=== PATIENT | female | born 1975 | race Caucasian/White ===

== ENCOUNTER 2018-02-21 13:36 | Outpatient (REF) | payer MEDICAID, SELFPAY ==
--- NOTE | 2018-02-21 09:15 | PAPFT_PTH ---
PATIENT: Katelyn Echevarria LOC: [facility] U#:[id number] AGE/SX: 42/F ROOM: RE02/21/[address]: Chang Garcia : 1975 BED: DIS: 02/21/2018 SPEC #: [id number] RECD: 02/22/18 12:47 STATUS: BRAYAN REBenja #: [id number] LEONARDO: 02/21/18 09:[address]: Chang Garcia DEPT: [facility] Cytology RECD BY: Ayesha Farfan Tissues: 1 - CX/ENDOCX FOR PAP SMEARS Procedures: PAP THIN PREP/[facility] Screening HPV DNA PROBE Comments: [id number]
== END 2018-02-21 13:37 ==
LOC: NCHCN 13:36
PROVIDERS: PCP Family Medicine; Visit Provider Family Medicine
DX: Z12.4 Encounter for screening for malignant neoplasm of cervix (principal); Z11.51 Encounter for screening for human papillomavirus (HPV)
CPT/HCPCS: 88142; 87624

== ENCOUNTER 2020-01-22 12:57 | Outpatient (REF) | payer MEDICAID, SELFPAY ==
[2020-01-22 22:02] LABS: Clarity Sl Cloudy (Clear)
[2020-01-22 22:13] LABS: Bilirubin Color Interference (Negative); Blood Color Interference (Negative); Glucose Color Interference mg/dL (Negative); Ketones Color Interference mg/dL (Negative); Leukocyte Esterase Color Interference (Negative); Nitrite Color Interference (Negative); Urobilinogen Color Interference EU/dL (Up TO 0.2)
[2020-01-22 22:15] LABS: Epithelial Cells Rare HPF (Negative); RBC Negative HPF (0-2)
[2020-01-22 22:16] LABS: Bacteria Rare HPF (Negative); C & S Indicated? Yes; Casts Negative LPF (Negative); Crystals Negative HPF (Negative); Mucus Negative (Negative); Other Cells Negative (Negative)
== END 2020-01-22 13:17 ==
LOC: NCHCN 12:57
PROVIDERS: PCP Family Medicine; Visit Provider Nurse Practitioner Family
DX: R30.0 Dysuria (principal)
CPT/HCPCS: 87077; 81003; 81015; 87086; 87186

== ENCOUNTER 2022-02-23 09:29 | Outpatient (REF) | payer MEDICAID, SELFPAY ==
[2022-02-23 17:35] LABS: ALT 28 U/L (14-59); AST 23 U/L (15-37); Albumin 3.7 g/dL (3.4-5.0); Alkaline Phosphatase 64 U/L (46-116); Anion Gap 7.2 mmol/L (3-11); BUN 11 mg/dL (7-18); Bilirubin, Total 0.5 mg/dL (0.2-1.0); CO2 27.8 mmol/L (21.0-32.0); Calcium 8.6 mg/dL (8.5-10.1); Calculated LDL 125 mg/dL (<100); Chloride 103 mmol/L (98-107); Cholesterol 222 mg/dL (<200); Estimated GFR 59.69 (mL/min/1.73m2); Glucose 94 mg/dL (74-106); HDL Cholesterol 60 mg/dL (40-60); Potassium 4.2 mmol/L (3.5-5.1); Sodium 138 mmol/L (136-145); Total Protein 6.9 g/dL (6.4-8.2); Triglyceride 189 mg/dL (<150)
== END 2022-02-23 09:30 | disposition home or self-care (01) ==
LOC: NCHCN 09:29
PROVIDERS: PCP Family Medicine; Visit Provider Family Medicine
DX: R73.01 Impaired fasting glucose (principal); E78.5 Hyperlipidemia, unspecified
CPT/HCPCS: 80053; 80061

== ENCOUNTER 2023-03-24 14:12 | Outpatient (REF) | payer MEDICAID, SELFPAY ==
--- NOTE | 2023-03-24 10:00 | PAPFT_PTH ---
PATIENT: Katelyn Echevarria LOC: [facility]#:[id number] AGE/SX: 48/F ROOM: RE03/24/[address]: Chang Garcia : 1975 BED: DIS: 03/24/2023 SPEC #: [id number] RECD: 03/27/23 13:31 STATUS: BRAYAN REQ #: [id number] LEONARDO: 03/24/23 10:[address]: Chang Garcia DEPT: [facility] Cytology RECD BY: Ayesha Farfan Tissues: 1 - CX/ENDOCX FOR PAP SMEARS Procedures: PAP THIN PREP/[facility] Screening HPV DNA PROBE Comments: [id number]
== END 2023-03-24 14:13 | disposition home or self-care (01) ==
LOC: NCHCN 14:12
PROVIDERS: PCP Family Medicine; Visit Provider Family Medicine
DX: Z12.4 Encounter for screening for malignant neoplasm of cervix (principal); Z11.51 Encounter for screening for human papillomavirus (HPV)
CPT/HCPCS: 88142; 87624